=== PATIENT | male | born 1960 | race Caucasian/White ===

== ENCOUNTER 2018-06-08 09:47 | Emergency (ER) | payer SELFPAY ==
[2018-06-08 09:52] VITALS: BP 181/91; PULSE 74; RESP 18; TEMP 36.8; O2SAT 97
--- NOTE | 2018-06-08 10:20 | W.ED.GENAD ---
Discharge Plan Disposition Patient Disposition: HOME Condition: Good Discharge Details Chief Complaint: DentalOral Clinical Impression: Infected dental carries Primary Care Provider: Robert Lewis ED Provider: Jaems Sam Home Meds and New Rx's Prescriptions: New acetaminophen [Mapap Extra Strength] 500 MG tablet 1,000 mg PO Q6H 5 Days Qty: 60 RF: 0 ibuprofen [Motrin IB] 200 MG tablet 600 mg PO Q6H 5 Days Qty: 60 RF: 0 amoxicillin-pot clavulanate [Augmentin] 875-125 mg tablet 1 tab PO BID Qty: 14 RF: 0 hydrocodone-acetaminophen [[place]] 7.5-325 mg tablet 1 tab PO Q6H Qty: 5 RF: 0 Discharge Instructions Instructions: Dental Caries (ED) Additional Instructions: Please take the medication as directed. Please follow-up with your dentist as soon as possible. If you notice any worsening of your symptoms, or any new symptoms such as vomiting, diarrhea, fever, chills, shortness of breath, chest pain, numbness, weakness, or fainting , please return immediately to the emergency department for reevaluation. Please follow up with your primary care provider as soon as possible for reassessment and reevaluation. As always, it was a pleasure participating in your medical care today. Referrals: Robert Lewis [Primary Care Provider] - Medical Decision Making This is a pleasant 57-year-old male who presents with complaint of dental pain. Physical exam demonstrates dental caries for the right lower molars in the right upper molars. No evidence of abscess or fluctuance. No systemic symptoms of fever or chills. Dental block was performed and the patient had notable relief of the symptoms. He will be started on antibiotic, given a dental resource sheet, recommend continue Tylenol and Motrin for home use. We discussed red flags first return. As well as the importance of close dental follow-up. I have extensively reviewed the treatment plan and discharge instructions with the patient. I have addressed all patient concerns at this time. The patient was made aware of what symptoms to monitor for that would warrant a return to the emergency department. Discussed the plan with the patient, they demonstrate verbal understanding and agreement with our assessment and plan at this time. HPI General Date/Time Provider Initiated Documentation: 06/08/18 10:01. HPI Narrative: This is a pleasant 57-year-old male who presents with right lower dental pain over tooth 30 and 31. Pain is been present for the last few days, but has notably worsened over the last 24-48 hours. Symptoms are made worse with chewing. They have not been improved with Tylenol or Motrin. He denies any trismus, neck pain, sore throat, or headache. He denies any drainage. He denies any recent surgeries, pertinent medical problems, or other complaints. He denies any IV or illicit drug use. Related Data Home Medications Medication Instructions Recorded Confirmed acetaminophen [Mapap Extra 1,000 mg PO Q6H 5 Days #60 tab 06/08/18 Strength] amoxicillin-pot clavulanate 1 tab PO BID #14 tab 06/08/18 [Augmentin] hydrocodone-acetaminophen [[place]] 1 tab PO Q6H #5 tab 06/08/18 ibuprofen [Motrin Ib] 600 mg PO Q6H 5 Days #60 tab 06/08/18 Previous Rx's Medication Instructions Recorded acetaminophen [Mapap Extra 1,000 mg PO Q6H 5 Days #60 tab 06/08/18 Strength] amoxicillin-pot clavulanate 1 tab PO BID #14 tab 06/08/18 [Augmentin] hydrocodone-acetaminophen [[place]] 1 tab PO Q6H #5 tab 06/08/18 ibuprofen [Motrin Ib] 600 mg PO Q6H 5 Days #60 tab 06/08/18 General Stated Complaint: DentalOral BLANCA: 4 Review of Systems Review of Systems All systems reviewed & are unremarkable except as noted in HPI and below PFSH Social History Smoking/Tobacco Use Status: Never Exam Narrative Exam Narrative: 1.Const: Well-nourished, Well-developed, appearing stated age 2.Eyes: PERRL, no conjunctival injection, and symmetrical lids. 3.ENT: Atraumatic external nose and ears. Moist MM. Neck: Symmetric, trachea midline, No thyromegaly. Mild to moderate dental caries throughout, worse for the lower right molars, as well as the upper right molars. No evidence of abscess or fluctuance. No drainage. 4.CVS: +S1/S2, No murmurs or gallops. Peripheral pulses 2+ and equal in all extremities. Brisk capillary refill in all extremities. 5.RESP: Unlabored respiratory effort. Clear to auscultation bilaterally. No wheezes rales or rhonchi 6.GI: Soft, Nontender/Nondistended, No hepatosplenomegaly. No guarding or rebound. 7.MSK: Normocephalic/Atraumatic, Extremities w/o deformity or ttp No cyanosis or clubbing, Normal movement of all extremities 8.Skin: Warm, Dry. No rashes or lesions. 9.Neuro: formation testing operator II-XII grossly intact. Sensation grossly intact, no focal neurologic deficits. 10.Psych: (AAO) x3. Appropriate mood and affect Course Vital Signs Temperature 36.8 C 06/08/18 09:52 Pulse 74 06/08/18 09:52 Respiratory Rate 18 06/08/18 09:52 Blood Pressure 181/91 H 06/08/18 09:52 Pulse Oximetry 97 06/08/18 09:52 Temperature 36.8 C 06/08/18 09:52 Temperature Source Temporal Artery Scan 06/08/18 09:52 Pulse 74 06/08/18 09:52 Respiratory Rate 18 06/08/18 09:52 Respiratory Effort 06/08/18 09:59 Blood Pressure 181/91 H 06/08/18 09:52 Blood Pressure Position Sitting 06/08/18 09:52 Pulse Oximetry 97 06/08/18 09:52 Oxygen Delivery Method Room Air 06/08/18 09:52 Oxygen Flow Rate 0 06/08/18 09:52 Pain Level 6 06/08/18 09:52
--- NOTE | 2018-06-08 10:23 | ED.GENADUL_ITS ---
Discharge Plan Disposition Patient Disposition: HOME Condition: Good Discharge Details Chief Complaint: DentalOral Clinical Impression: Infected dental carries Primary Care Provider: Robert Lewis ED Provider: James Sam Home Meds and New Rx's Prescriptions: New acetaminophen [Mapap Extra Strength] 500 MG tablet 1,000 mg PO Q6H 5 Days Qty: 60 RF: 0 ibuprofen [Motrin IB] 200 MG tablet 600 mg PO Q6H 5 Days Qty: 60 RF: 0 amoxicillin-pot clavulanate [Augmentin] 875-125 mg tablet 1 tab PO BID Qty: 14 RF: 0 hydrocodone-acetaminophen [[place]] 7.5-325 mg tablet 1 tab PO Q6H Qty: 5 RF: 0 Discharge Instructions Instructions: Dental Caries (ED) Additional Instructions: Please take the medication as directed. Please follow-up with your dentist as soon as possible. If you notice any worsening of your symptoms, or any new symptoms such as vomiting, diarrhea, fever, chills, shortness of breath, chest pain, numbness, weakness, or fainting , please return immediately to the emergency department for reevaluation. Please follow up with your primary care provider as soon as possible for reassessment and reevaluation. As always, it was a pleasure participating in your medical care today. Referrals: Robert Lewis [Primary Care Provider] - Medical Decision Making This is a pleasant 57-year-old male who presents with complaint of dental pain. Physical exam demonstrates dental caries for the right lower molars in the right upper molars. No evidence of abscess or fluctuance. No systemic symptoms of fever or chills. Dental block was performed and the patient had notable relief of the symptoms. He will be started on antibiotic, given a dental resource sheet, recommend continue Tylenol and Motrin for home use. We discussed red flags first return. As well as the importance of close dental follow-up. I have extensively reviewed the treatment plan and discharge instructions with the patient. I have addressed all patient concerns at this time. The patient was made aware of what symptoms to monitor for that would warrant a return to the emergency department. Discussed the plan with the patient, they demonstrate verbal understanding and agreement with our assessment and plan at this time. HPI General Date/Time Provider Initiated Documentation: 06/08/18 10:01 . HPI Narrative: This is a pleasant 57-year-old male who presents with right lower dental pain over tooth 30 and 31. Pain is been present for the last few days, but has notably worsened over the last 24-48 hours. Symptoms are made worse with chewing. They have not been improved with Tylenol or Motrin. He denies any trismus, neck pain, sore throat, or headache. He denies any drainage. He denies any recent surgeries, pertinent medical problems, or other complaints. He denies any IV or illicit drug use. Related Data Home Medications Medication Instructions Recorded Confirmed acetaminophen [Mapap Extra 1,000 mg PO Q6H 5 Days #60 tab 06/08/18 Strength] amoxicillin-pot clavulanate 1 tab PO BID #14 tab 06/08/18 [Augmentin] hydrocodone-acetaminophen [[place]] 1 tab PO Q6H #5 tab 06/08/18 ibuprofen [Motrin Ib] 600 mg PO Q6H 5 Days #60 tab 06/08/18 Previous Rx's Medication Instructions Recorded acetaminophen [Mapap Extra 1,000 mg PO Q6H 5 Days #60 tab 06/08/18 Strength] amoxicillin-pot clavulanate 1 tab PO BID #14 tab 06/08/18 [Augmentin] hydrocodone-acetaminophen [[place]] 1 tab PO Q6H #5 tab 06/08/18 ibuprofen [Motrin Ib] 600 mg PO Q6H 5 Days #60 tab 06/08/18 General Stated Complaint: DentalOral BLANCA: 4 Review of Systems Review of Systems All systems reviewed & are unremarkable except as noted in HPI and below PFSH Social History Smoking/Tobacco Use Status: Never Exam Narrative Exam Narrative: 1.Const: Well-nourished, Well-developed, appearing stated age 2.Eyes: PERRL, no conjunctival injection, and symmetrical lids. 3.ENT: Atraumatic external nose and ears. Moist MM. Neck: Symmetric, trachea midline, No thyromegaly. Mild to moderate dental caries throughout, worse for the lower right molars, as well as the upper right molars. No evidence of abscess or fluctuance. No drainage. 4.CVS: +S1/S2, No murmurs or gallops. Peripheral pulses 2+ and equal in all extremities. Brisk capillary refill in all extremities. 5.RESP: Unlabored respiratory effort. Clear to auscultation bilaterally. No wheezes rales or rhonchi 6.GI: Soft, Nontender/Nondistended, No hepatosplenomegaly. No guarding or rebou nd. 7.MSK: Normocephalic/Atraumatic, Extremities w/o deformity or ttp No cyanosis or clubbing, Normal movement of all extremities 8.Skin: Warm, Dry. No rashes or lesions. 9.Neuro: corrugated sheet material sheeter II-XII grossly intact. Sensation grossly intact, no focal neurologic deficits. 10.Psych: (AAO) x3. Appropriate mood and affect Course Vital Signs Temperature 36.8 C 06/08/18 09:52 Pulse 74 06/08/18 09:52 Respiratory Rate 18 06/08/18 09:52 Blood Pressure 181/91 H 06/08/18 09:52 Pulse Oximetry 97 06/08/18 09:52 Temperature 36.8 C 06/08/18 09:52 Temperature Source Temporal Artery Scan 06/08/18 09:52 Pulse 74 06/08/18 09:52 Respiratory Rate 18 06/08/18 09:52 Respiratory Effort 06/08/18 09:59 Blood Pressure 181/91 H 06/08/18 09:52 Blood Pressure Position Sitting 06/08/18 09:52 Pulse Oximetry 97 06/08/18 09:52 Oxygen Delivery Method Room Air 06/08/18 09:52 Oxygen Flow Rate 0 06/08/18 09:52 Pain Level 6 06/08/18 09:52
== END 2018-06-08 10:35 | disposition home or self-care (01) ==
LOC: ER 10:24
PROVIDERS: Emergency Provider Student in an Organized Health Care Education/Training Program; PCP Internal Medicine
DX: K04.7 Periapical abscess without sinus (principal); K02.9 Dental caries, unspecified
CPT/HCPCS: 99283